=== PATIENT | male | born 1980 | race Caucasian/White ===

== ENCOUNTER 2019-07-17 19:18 | Emergency (ER) | payer OTHER, MEDICAID ==
[~2019-07-17] VITALS: Ht 182.9 cm; Wt 145.2 kg
[2019-07-17] MEDS ORDERED: MUCINEX600 MG PO (19:46)
[2019-07-17] MEDS ORDERED: AUGMENTIN 875-1 EACH PO (19:46)
[2019-07-17 20:04] VITALS: BP 151/109
== END 2019-07-17 20:08 | disposition home or self-care (01) ==
LOC: M.ERS 19:18
DX: H66.92 Otitis media, unspecified, left ear (principal); J06.9 Acute upper respiratory infection, unspecified; I10 Essential (primary) hypertension